=== PATIENT | female | born 1975 | race Caucasian/White ===

== ENCOUNTER 2019-10-23 12:27 | Emergency (ER) | payer SELFPAY ==
[~2019-10-23] VITALS: Ht 170.2 cm; Wt 68.0 kg
[2019-10-23 12:30] VITALS: BP_SYST 139
--- NOTE | 2019-10-23 12:30 | NUR ---
Patient to ER bed 7 to gown for evaluation. Side rails up.
--- NOTE | 2019-10-23 12:47 | NUR ---
Pt came to ER for flu like symptoms, she is AO4, VSS, awaiting MD at this time.
--- NOTE | 2019-10-23 12:55 | NUR ---
ER at bedside examining patient.
--- NOTE | 2019-10-23 13:00 | NUR ---
Patient given written and verbal discharge instructions and verbalizes understanding. ER MD discussed with patient the results and treatment provided. Patient in stable condition. ID arm band removed. Patient educated on pain management and to follow up with PMD. Pain Scale 0. Opportunity for questions provided and answered. Medication side effect fact sheet provided.
== END 2019-10-23 13:03 | disposition home or self-care (01) ==
LOC: SED 12:27
DX: J06.9 Acute upper respiratory infection, unspecified (principal)
CPT/HCPCS: 99281